=== PATIENT | female | born 1985 | race Caucasian/White ===

== ENCOUNTER → 2023-08-12 | Outpatient (CLI) | payer OTHER ==
[~2023-08-12] MED LIST: PROHANCE 279.3MG/ML 15ML VIAL ONE; PROHANCE 279.3MG/ML 5ML VIAL ONE
== END ==
LOC: M PLAIMG 09:13
PROVIDERS: ATTEND Student in an Organized Health Care Education/Training Program
DX: Z15.01 Genetic susceptibility to malignant neoplasm of breast (principal)
CPT/HCPCS: A9576; C8908

== ENCOUNTER → 2023-09-19 | Outpatient (CLI) | payer OTHER | LOC: M PLAIMG 09:44 | PROVIDERS: ATTEND Orthopaedic Surgery | DX: M54.12 Radiculopathy, cervical region (principal); M50.222 Other cervical disc displacement at C5-C6 level ==

== ENCOUNTER → 2024-08-08 | Outpatient (CLI) | payer OTHER | LOC: M WHC 09:12 | PROVIDERS: ATTEND Nurse Practitioner Primary Care | DX: D24.9 Benign neoplasm of unspecified breast (principal) ==